=== PATIENT | female | born 1980 | race Caucasian/White ===

== ENCOUNTER → 2016-08-31 | Outpatient (CLI) | payer BC ==
[~2016-08-31] MED LIST: NO HOME MEDS; SULF-228 PO
--- NOTE | 2016-09-01 14:26 | Diagnostic Imaging Report ---
INDICATION: Screening mammogram. COMPARISON: 05/04/2015. FAMILY HISTORY: Unknown. HISTORY: The patient had an ultrasound-guided biopsy on 05/11/2015 for a cystic and solid mass at the 10 o'clock position. The Pathology result was benign with fibrotic stroma and infiltrative or chronic inflammatory cells. She does report pain at this region currently. TECHNIQUE: Bilateral digital mammography was performed with computer assisted detection (CAD) software utilization. PERSONAL HISTORY: There are no reported clinical signs and/or symptoms of breast cancer. FINDINGS: The breast tissue pattern is composed mostly of radiographically fat tissue. RIGHT BREAST: The mass at the 10 o'clock position of the right breast with a stereotactic biopsy clip within it is measuring larger since the comparison examination. The asymmetry noted in the medial right breast has been stable. LEFT BREAST: No dominant mass, suspicious microcalcification, or other significant abnormality is identified. IMPRESSION: An ultrasound of the right breast is recommended. ACR BI-RADS Category 0 : Needs additional imaging Result letter will be mailed to the patient. Note: At least 10% of breast cancer is not imaged by mammography. Dictated by: Dictated on workstation # [id number]
== END ==
LOC: RAD 12:35
PROVIDERS: ATTEND Family Medicine
DX: Z12.31 Encounter for screening mammogram for malignant neoplasm of breast (principal)

== ENCOUNTER → 2016-09-06 | Outpatient (CLI) | payer BC ==
--- NOTE | 2016-09-06 22:14 | Diagnostic Imaging Report ---
EXAM: US BREAST LIMITED, RIGHT The current study was also evaluated with a Computer Aided Detection (CAD) system. INDICATION: Right breast mass. HISTORY: This patient has a history of a right breast mass which was previously biopsied in May of 2015. The pathology result at that time was discordant with the imaging findings. For this reason, a surgical biopsy was recommended at that time. Due to loss of health insurance, the patient was lost to followup. A surgical biopsy was not performed. COMPARISON: Mammograms 07/31/2011, 08/30/2011, 05/04/2015 and 08/31/2016. Right breast ultrasound 05/04/2015. Right breast targeted ultrasound 05/31/2015. FINDINGS: Since the prior ultrasound examination, the circumscribed complex mixed solid and cystic mass in the right breast at 10:00 o'clock has grown to approximately 2.9 x 2.8 x 1.5 cm, previously 2.2 x 2.1 x 1.5 cm. There is now a biopsy clip within the mass. No new mass or fluid collection identified. IMPRESSION: Growing mixed solid and cystic mass in the right breast. RECOMMENDATION: Prior biopsy pathology of this growing mass was discordant with imaging findings. Recommend surgical consultation for biopsy. BI-RADS category 4: Suspicious finding. ACR BI-RADS Category 4: Suspicious abnormality. Result letter will be mailed to the patient. Note: At least 10% of breast cancer is not imaged by mammography. Dictated by: Dictated on workstation # [id number]
== END ==
LOC: RAD 14:47
PROVIDERS: ATTEND Family Medicine
DX: D24.1 Benign neoplasm of right breast (principal)
CPT/HCPCS: 76642